=== PATIENT | male | born 1990 | race Caucasian/White ===

== ENCOUNTER 2017-04-07 08:53 | Emergency (ER) | payer MEDICAID, OTHER ==
[~2017-04-07] VITALS: Ht 170.2 cm; Wt 68.2 kg
[2017-04-07 11:39] VITALS: BP 120/78
== END 2017-04-07 11:42 | disposition home or self-care (01) ==
LOC: EMS 08:57
DX: N45.1 Epididymitis (principal)
CPT/HCPCS: 76870; 99284

== ENCOUNTER 2017-12-28 03:58 | Emergency (ER) | payer MEDICAID ==
[~2017-12-28] VITALS: Ht 172.7 cm; Wt 67.0 kg
[2017-12-28 05:25] VITALS: BP 140/88
== END 2017-12-28 05:49 | disposition home or self-care (01) ==
LOC: EMS 03:58
DX: S00.33XA Contusion of nose, initial encounter (principal); F41.9 Anxiety disorder, unspecified; F17.210 Nicotine dependence, cigarettes, uncomplicated; W50.0XXA Accidental hit or strike by another person, initial encounter; Y93.89 Activity, other specified; Y92.89 Other specified places as the place of occurrence of the external cause; Y99.8 Other external cause status
CPT/HCPCS: 70160

== ENCOUNTER 2020-10-16 05:32 | Emergency (ER) | payer MEDICAID, OTHER ==
[~2020-10-16] VITALS: Ht 170.2 cm; Wt 72.7 kg
[2020-10-16] MEDS ORDERED: SODIUM CHLORIDE 0.9% 1,000 ML IV ONE (07:15)
[2020-10-16] MEDS ORDERED: DICYCLOMINE HCL 20 MG TABLET PO ONE (07:30)
[2020-10-16] MEDS ORDERED: ONDANSETRON HCL 4 MG/2 ML VIAL IVP ONE (07:30)
[2020-10-16 07:41] LABS: BASOPHILS % (AUTO) 0.2 % (0.0-2.0); EOSINOPHILS % (AUTO) 0 % (1.0-6.0); HEMATOCRIT 48.3 % (41-53); HEMOGLOBIN 16.3 g/dL (13.5-17.5); LYMPHOCYTES # (AUTO) 0.6 K/uL (1.0-4.8); LYMPHOCYTES % (AUTO) 3.6 % (22.0-44.0); MEAN CORPUSCULAR HEMOGLOBIN 33.2 pg (26.0-34.0); MEAN CORPUSCULAR HGB CONC 33.8 G/dL (31.0-37.0); MEAN CORPUSCULAR VOLUME 98 fL (80-100); MONOCYTES % (AUTO) 5.9 % (2.0-9.0); NEUTROPHILS # (AUTO) 14.6 K/uL (1.8-7.7); PLATELET COUNT (AUTO) 215 K/uL (150-450); RED BLOOD CELL COUNT(AUTO) 4.92 MIL/uL (4.50-5.90); RED CELL DISTRIBUTION WIDTH 12.3 % (11.5-14.5)
[2020-10-16 07:45] LABS: NEUTROPHILS % (AUTO) 90.3 % (40.0-70.0)
[2020-10-16 07:53] LABS: ANION GAP 11 mmol/L (8-16); CALCIUM, TOTAL 7.9 mg/dL (8.8-10.5); CARBON DIOXIDE 29 mmol/L (22-29); CHLORIDE 102 mmol/L (98-107); CREATININE 0.94 mg/dL (0.60-1.30); GLOMERULAR FILTR. RATE CALC > 60 mL/min (>60); GLUCOSE,RANDOM 131 mg/dL (70-110); POTASSIUM 3.7 mmol/L (3.5-5.1); SODIUM SERUM 142 mmol/L (136-145); UREA NITROGEN, BLOOD 10 mg/dL (7-18)
[2020-10-16 07:59] LABS: ALANINE AMINOTRANSFERASE 40 U/L (12-78); ALBUMIN 4.2 g/dL (3.4-5.0); ALKALINE PHOSPHATASE 70 U/L (46-116); ASPARTATE AMINOTRANSFERASE 27 U/L (15-37); BILIRUBIN,TOTAL 0.6 mg/dL (0.1-1.0); LIPASE 73 U/L (73-393); TOTAL PROTEIN, SERUM 7.7 g/dL (6.4-8.2)
[2020-10-16] MEDS ORDERED: SODIUM CHLORIDE 0.9% 100 ML ONE (09:11)
[2020-10-16] MEDS ORDERED: IOHEXOL 350 MG/ML 100 ML VIAL ONE (09:11)
[2020-10-16 11:09] VITALS: BP 144/40
== END 2020-10-16 11:24 | disposition home or self-care (01) ==
LOC: EMS 05:36
DX: K52.9 Noninfective gastroenteritis and colitis, unspecified (principal); F41.9 Anxiety disorder, unspecified; F17.210 Nicotine dependence, cigarettes, uncomplicated; Z98.890 Other specified postprocedural states
CPT/HCPCS: 74177; 80053; 83690; 85025; 96361; 96374; 99285; A9575; J2405; J7030; J7050; Q9967; 36415-L1; 36415-TC

== ENCOUNTER 2024-12-27 19:10 | Emergency (ER) | payer SELFPAY ==
[~2024-12-27] VITALS: Ht 170.2 cm; Wt 73.0 kg
[2024-12-27 19:24] VITALS: TEMP 97.9
[2024-12-27 22:45] VITALS: BP 122/87; PULSE 94; RESP 18; O2SAT 98
== END 2024-12-27 23:06 | disposition home or self-care (01) ==
LOC: EMS 19:10
DX: S62.325A Displaced fracture of shaft of fourth metacarpal bone, left hand, initial encounter for closed fracture (principal); F12.90 Cannabis use, unspecified, uncomplicated; F17.210 Nicotine dependence, cigarettes, uncomplicated; F10.90 Alcohol use, unspecified, uncomplicated; Z98.890 Other specified postprocedural states; W19.XXXA Unspecified fall, initial encounter; Y93.89 Activity, other specified; Y92.89 Other specified places as the place of occurrence of the external cause; Y99.8 Other external cause status; Y90.9 Presence of alcohol in blood, level not specified
CPT/HCPCS: 99283